=== PATIENT | female | born 1995 | race Caucasian/White ===

== ENCOUNTER 2018-10-21 08:33 | Emergency (ER) | payer MEDICAID ==
[~2018-10-21] VITALS: Ht 160 cm; Wt 53.8 kg
[~2018-10-21 08:33] MED LIST: IBUP-1984 PO; PENI500T2 PO
[2018-10-21] MEDS ORDERED: triamcinolone acetonide 40mg/ml inj IM ONE (08:55)
[2018-10-21 09:11] VITALS: BP 106/56
== END 2018-10-21 09:25 | disposition home or self-care (01) ==
LOC: ER 08:33
DX: L23.9 Allergic contact dermatitis, unspecified cause (principal); F17.200 Nicotine dependence, unspecified, uncomplicated; Z79.899 Other long term (current) drug therapy
CPT/HCPCS: 96372; 99283; J3301

== ENCOUNTER 2019-02-23 07:32 | Emergency (ER) | payer MEDICAID ==
[~2019-02-23] VITALS: Ht 160 cm; Wt 54.0 kg
[2019-02-23] MEDS ORDERED: ciprofloxacin 0.3% 2.5ml ophthalmic solution EACHEYE STA (08:09)
[2019-02-23 08:30] VITALS: BP 143/93
== END 2019-02-23 08:32 | disposition home or self-care (01) ==
LOC: ER 07:33
DX: H10.9 Unspecified conjunctivitis (principal); Z79.899 Other long term (current) drug therapy
CPT/HCPCS: 99283

== ENCOUNTER 2019-09-06 18:57 | Emergency (ER) | payer MEDICAID ==
[~2019-09-06] VITALS: Ht 160 cm; Wt 56.0 kg
[2019-09-06 19:02] VITALS: BP 139/94
[2019-09-06] MEDS ORDERED: PENI500T2 PO (19:46)
== END 2019-09-06 20:27 | disposition home or self-care (01) ==
LOC: ER 18:58
DX: K08.89 Other specified disorders of teeth and supporting structures (principal); F10.10 Alcohol abuse, uncomplicated; R00.0 Tachycardia, unspecified; F12.90 Cannabis use, unspecified, uncomplicated; Z79.899 Other long term (current) drug therapy; Y90.9 Presence of alcohol in blood, level not specified
CPT/HCPCS: 93005; 99283

== ENCOUNTER 2019-11-16 03:27 | Emergency (ER) | payer MEDICAID ==
[~2019-11-16] VITALS: Ht 160 cm; Wt 57.3 kg
[2019-11-16 03:33] VITALS: BP 113/82
[2019-11-16] MEDS ORDERED: sulfamethoxazole/trimethoprim DS (800/160mg) tablet PO ONE (04:05)
[2019-11-16] MEDS ORDERED: cephalexin 250mg capsule PO ONE (04:05)
[2019-11-16] MEDS ORDERED: ketorolac trometh inj. 60 MG/2 ML VIAL IM ONE (04:05)
[2019-11-16] MEDS ORDERED: CEPH500C5 PO (04:06)
[2019-11-16] MEDS ORDERED: BACDS PO (04:06)
== END 2019-11-16 04:17 | disposition home or self-care (01) ==
LOC: ER 03:29
DX: L03.211 Cellulitis of face (principal); F12.90 Cannabis use, unspecified, uncomplicated; F15.90 Other stimulant use, unspecified, uncomplicated
CPT/HCPCS: 96372; 99283; J1885

== ENCOUNTER 2020-04-23 22:45 | Emergency (ER) | payer MEDICAID ==
[~2020-04-23] VITALS: Ht 160 cm; Wt 56.8 kg
[~2020-04-23 22:45] MED LIST changes: +CEPH500C5 PO
[2020-04-23 22:47] VITALS: BP 135/88
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
--- NOTE | 2020-04-23 23:06 | NUR ---
SPOKE WITH [facility],
[2020-04-23] MEDS ORDERED: TETanus/Pertussis (Acell)/Diphther VAC/PF (Tdap-Adult) 0.5ml syringe IMVAC ONE (23:20)
[2020-04-23] MEDS ORDERED: LIDOcaine 1% W/epiNEPHrine 1:200,000 10ml vial IJ ONE (23:20)
--- NOTE | 2020-04-23 23:40 | NUR ---
[facility] PRESENT INTERVIEWING PT IN BED 9.
[2020-04-23] MEDS ORDERED: SULF1TAB49 PO (23:45)
[2020-04-23] MEDS ORDERED: CEPH-572 PO (23:45)
== END 2020-04-24 00:19 | disposition home or self-care (01) ==
LOC: ER 22:46
DX: L02.01 Cutaneous abscess of face (principal); R51 Headache; M54.2 Cervicalgia; R11.0 Nausea; F17.210 Nicotine dependence, cigarettes, uncomplicated; Z72.89 Other problems related to lifestyle; Z79.899 Other long term (current) drug therapy; Y09 Assault by unspecified means
CPT/HCPCS: 10060; 90471; 90715; 99283

== ENCOUNTER 2020-11-13 16:22 | Emergency (ER) | payer MEDICAID ==
[~2020-11-13] VITALS: Ht 160 cm; Wt 52.0 kg
[~2020-11-13 16:22] MED LIST changes: +CEPH-585 PO; -CEPH500C5 PO
[2020-11-13 16:40] VITALS: BP 139/85
[2020-11-13] MEDS ORDERED: DOXY100C77 PO (17:42)
[2020-11-13] MEDS ORDERED: CefTRIAXone 1000mg IM Kit (w/lidocaine diluent) IM ONE (17:45)
[2020-11-13 17:48] LABS: CLARITY,URINE CLOUDY (Clear); COLOR,URINE YELLOW (Yellow); GLUCOSE, URINE NEGATIVE (Neg); KETONES,URINE NEGATIVE (Neg); LEUKOCYTE ESTERASE ,URINE SMALL (Neg); NITRITES, URINE POSITIVE (Neg); OCCULT BLOOD,URINE NEGATIVE (Neg); PROTEIN,URINE NEGATIVE (Neg); UROBILINOGEN,URINE 0.2 E.U/dL (0.2-1.0)
[2020-11-13 17:49] LABS: URINE HCG NEGATIVE (NEG)
[2020-11-13 17:50] LABS: UA COLLECTION TYPE VOIDED
[2020-11-13 17:57] LABS: BACTERIA,URINE 4+ /HPF (Neg); MUCUS STRANDS FEW /LPF (Neg); RBC,URINE 0-2 /HPF (0-2); SQUAMOUS EPITHELIAL CELL,UR MANY /LPF (FEW)
[2020-11-13 17:58] LABS: AMORPHOUS PHOSPHATES 2+
== END 2020-11-13 18:29 | disposition home or self-care (01) ==
LOC: ER 16:23
DX: N89.8 Other specified noninflammatory disorders of vagina (principal); Z20.2 Contact with and (suspected) exposure to infections with a predominantly sexual mode of transmission; Z79.2 Long term (current) use of antibiotics; Z79.899 Other long term (current) drug therapy
CPT/HCPCS: 36415; 81001; 81025; 87491; 87591; 96372; 99283; J0696

== ENCOUNTER 2021-10-30 13:32 | Emergency (ER) | payer MEDICAID ==
[~2021-10-30] VITALS: Ht 160 cm; Wt 59.1 kg
[~2021-10-30 13:32] MED LIST changes: -CEPH-585 PO
[2021-10-30 13:49] VITALS: BP 125/77
[2021-10-30 14:26] LABS: CLARITY,URINE CLOUDY (Clear); COLOR,URINE YELLOW (Yellow); GLUCOSE, URINE NEGATIVE (Neg); KETONES,URINE 15 mg/dl (Neg); LEUKOCYTE ESTERASE ,URINE SMALL (Neg); NITRITES, URINE POSITIVE (Neg); OCCULT BLOOD,URINE LARGE (Neg); PROTEIN,URINE 30 mg/dl (Neg); URINE HCG NEGATIVE (NEG); UROBILINOGEN,URINE 0.2 E.U/dL (0.2-1.0)
[2021-10-30 14:35] LABS: URINE AMPHETAMINE SCREEN POSITIVE (Neg); URINE BARBITUATE SCREEN NEGATIVE (Neg); URINE BENZODIAZEPINES SCREEN NEGATIVE (Neg); URINE CANNABINOID SCREEN POSITIVE (Neg); URINE COCAINE SCREEN NEGATIVE (Neg); URINE METHADONE SCREEN NEGATIVE (Neg); URINE OPIATE SCREEN NEGATIVE (Neg); URINE PHENCYCLIDINE SCREEN NEGATIVE (Neg)
[2021-10-30 14:44] LABS: UA COLLECTION TYPE CLN CATCH MIDSTREAM
[2021-10-30 14:45] LABS: TRICHOMONAS,URINE MOD /HPF (NEGATIVE); WBC,URINE TNTC /HPF (0-4)
[2021-10-30 14:46] LABS: BACTERIA,URINE 2+ /HPF (Neg)
[2021-10-30 14:47] LABS: SQUAMOUS EPITHELIAL CELL,UR MODERATE /LPF (FEW)
[2021-10-30] MEDS ORDERED: azithromycin 250mg tablet PO ONE (15:35)
[2021-10-30] MEDS ORDERED: penicillin G benzathine 1.2 million unit/2ml syringe IM ONE ×2 (15:35)
[2021-10-30] MEDS ORDERED: CefTRIAXone 250MG IM Kit w/LIDOcaine IM ONE (15:35)
[2021-10-30] MEDS ORDERED: PENICILLIN G BENZATHINE 2,400,000 UNIT/4 ML SYRINGE IM ONE (16:31)
[2021-10-30] MEDS ORDERED: ACET-2615 PO (16:43)
[2021-10-30] MEDS ORDERED: CEPH-585 PO (16:43)
== END 2021-10-30 17:01 | disposition home or self-care (01) ==
LOC: ER 13:34
DX: Z20.2 Contact with and (suspected) exposure to infections with a predominantly sexual mode of transmission (principal); N12 Tubulo-interstitial nephritis, not specified as acute or chronic; R31.9 Hematuria, unspecified; M54.2 Cervicalgia; R30.0 Dysuria; Z72.89 Other problems related to lifestyle; Z79.2 Long term (current) use of antibiotics; Z79.899 Other long term (current) drug therapy
CPT/HCPCS: 36415; 80305; 81001; 81025; 86592; 87077; 87088; 87186; 87491; 87591; 96372; 99284; J0561; J0696

== ENCOUNTER 2022-03-12 07:38 | Emergency (ER) | payer MEDICAID ==
[~2022-03-12] VITALS: Ht 160 cm; Wt 57.3 kg
[~2022-03-12 07:38] MED LIST changes: +CEPH-585 PO
[2022-03-12] MEDS ORDERED: LORazepam 1 MG tablet PO ONE (08:40)
[2022-03-12] MEDS ORDERED: ibuprofen tablet 400 MG TABLET PO ONE (08:40)
[2022-03-12] MEDS ORDERED: ondansetron 4mg rapidly disintigrating tab PO ONE (08:45)
[2022-03-12] MEDS ORDERED: MAG355OR18 PO ×2 (09:19)
[2022-03-12] MEDS ORDERED: CEPH500C2 PO (10:34)
[2022-03-12] MEDS ORDERED: CefTRIAXone 250MG inj IM ONE (10:35)
[2022-03-12] MEDS ORDERED: cephalexin 500mg capsule PO ONE (10:35)
[2022-03-12] MEDS ORDERED: CefTRIAXone 500MG IM Kit w/LIDOcaine IM ONE ×3 (10:55→11:10)
[2022-03-12] MEDS ORDERED: CefTRIAXone 1000mg IM Kit (w/lidocaine diluent) IM ONE (11:10)
[2022-03-12 11:29] VITALS: BP 105/67
== END 2022-03-12 11:30 | disposition home or self-care (01) ==
LOC: ER 07:38
DX: N12 Tubulo-interstitial nephritis, not specified as acute or chronic (principal); F12.90 Cannabis use, unspecified, uncomplicated; F15.90 Other stimulant use, unspecified, uncomplicated; Z72.89 Other problems related to lifestyle; Z87.440 Personal history of urinary (tract) infections; Z79.2 Long term (current) use of antibiotics; Z79.899 Other long term (current) drug therapy
CPT/HCPCS: 96372; 99284; J0696

== ENCOUNTER 2022-07-14 00:25 | Emergency (ER) | payer MEDICAID ==
[~2022-07-14] VITALS: Ht 160 cm; Wt 56.8 kg
[2022-07-14 00:32] VITALS: BP 130/78
== END 2022-07-14 03:15 | disposition left against medical advice (07) ==
LOC: ER 00:25
DX: M54.9 Dorsalgia, unspecified (principal); Z53.21 Procedure and treatment not carried out due to patient leaving prior to being seen by health care provider

== ENCOUNTER 2023-10-19 13:09 | Emergency (ER) | payer MEDICAID ==
[~2023-10-19] VITALS: Ht 157.5 cm; Wt 54.2 kg
[~2023-10-19 13:09] MED LIST changes: -CEPH-585 PO
[2023-10-19 14:42] LABS: BASOPHILS # (AUTO) 0.1 X10'3 (0-0.2); BASOPHILS % (AUTO) 0.2 % (0-1); EOSINOPHILS # (AUTO) 0.1 X10'3 (0-0.9); EOSINOPHILS % (AUTO) 0.2 % (0-6); HEMATOCRIT 35.1 % (35.0-45.0); HEMOGLOBIN 11.6 g/dl (12.0-16.0); LYMPHOCYTES % (AUTO) 7.9 % (21-51); MEAN CORPUSCULAR HEMOGLOBIN 31.4 PG (27.0-31.0); MEAN CORPUSCULAR VOLUME 95.2 FL (78-98); MONOCYTES # (AUTO) 1.1 X10'3 (0-0.9); MONOCYTES % (AUTO) 4.3 % (2-12); NEUTROPHILS # (AUTO) 22.3 X10'3 (1.8-7.7); NEUTROPHILS % (AUTO) 87.4 % (42-75); PLATELET COUNT 299 X10'3 (140-440); RED BLOOD COUNT 3.68 X10'6 (4.20-5.60); RED CELL DISTRIBUTION WIDTH 12.3 % (11.5-14.5)
[2023-10-19 14:44] LABS: WHITE BLOOD COUNT 25.5 X10'3 (4.5-11.0)
[2023-10-19] MEDS ORDERED: normal saline 1000ML IV soln IVB ONE ×2 (14:45→17:55)
[2023-10-19] MEDS ORDERED: morphine 4 MG/ML inj SYRINge IV ONE ×2 (14:45→15:25)
[2023-10-19] MEDS ORDERED: ondansetron/PF 4mg/2ml inj IV ONE ×2 (14:45→19:50)
[2023-10-19 14:58] LABS: ALANINE AMINOTRANSFERASE 10 U/L (12-78); ALBUMIN 3.5 G/DL (3.4-5.0); ALBUMIN/GLOBULIN RATIO 0.9 (1.1-1.5); ALKALINE PHOSPHATASE 91 IU/L (46-116); ANION GAP 9 (8-16); ASPARTATE AMINO TRANSFERASE 13 U/L (10-37); BILIRUBIN,TOTAL 1.1 MG/DL (0.1-1.0); BLOOD UREA NITROGEN 11 MG/DL (7-18); BUN/CREATININE RATIO 14.9 (10.0-20.0); CALCIUM 8.6 MG/DL (8.5-10.1); CHLORIDE 99 MMOL/L (99-107); CREATININE 0.74 MG/DL (0.40-0.90); GLUCOSE 94 MG/DL (70-104); POTASSIUM 3.2 MMOL/L (3.5-5.1); SODIUM 134 MMOL/L (135-145); TOTAL CARBON DIOXIDE 26.2 MMOL/L (24-32); TOTAL PROTEIN 7.4 G/DL (6.4-8.2); eCRCL 89 ML/MIN; eGFR > 90 ML/MIN
[2023-10-19 15:10] LABS: TOTAL CELLS COUNTED 100
[2023-10-19 15:11] LABS: PLATELET ESTIMATE NORMAL
[2023-10-19 15:30] LABS: BETA HCG,QUANTITATIVE < 1.0 mIU/ml; LIPASE 14 U/L (16-77)
[2023-10-19] MEDS ORDERED: normal saline 1000ml 1,000 ML IV ONE (15:45)
[2023-10-19] MEDS ORDERED: iohexol 300mg/ml 100ml inj. ONE (15:53)
[2023-10-19] MEDS ORDERED: NO HOME MEDS (16:04)
[2023-10-19 17:26] LABS: BILIRUBIN,URINE NEGATIVE (Neg); CLARITY,URINE SLIGHTLY CLOUDY (Clear); COLOR,URINE YELLOW (Yellow); GLUCOSE, URINE NEGATIVE (Neg); KETONES,URINE 40 mg/dl (Neg); LEUKOCYTE ESTERASE ,URINE SMALL (Neg); NITRITES, URINE POSITIVE (Neg); OCCULT BLOOD,URINE NEGATIVE (Neg); PH,URINE 6.5 (4.8-8.0); PROTEIN,URINE TRACE mg/dl (Neg)
[2023-10-19 17:34] LABS: UA COLLECTION TYPE CLN CATCH MIDSTREAM
[2023-10-19 17:36] LABS: WBC,URINE 50-100 /HPF (0-4)
[2023-10-19 17:37] LABS: BACTERIA,URINE 4+ /HPF (Neg); MUCUS STRANDS FEW /LPF (Neg); RBC,URINE NONE SEEN /HPF (0-2); SQUAMOUS EPITHELIAL CELL,UR MANY /LPF (FEW)
[2023-10-19 17:38] LABS: TRICHOMONAS,URINE FEW /HPF (NEGATIVE)
[2023-10-19] MEDS ORDERED: CefTRIAXone 2gm/D5W 50ml BAG 50 ML IV ONE (17:45)
[2023-10-19] MEDS ORDERED: METR-159 PO ×3 (17:51→17:56)
[2023-10-19] MEDS ORDERED: DOXY-411 PO (17:56)
[2023-10-19] MEDS ORDERED: ONDA4TAB12 PO (17:57)
[2023-10-19] MEDS ORDERED: ketorolac tromethamine 15mg/ml inj. IV ONE (18:20)
[2023-10-19 19:39] VITALS: BP 95/61; PULSE 112; RESP 17; O2SAT 99
[2023-10-19 20:05] VITALS: TEMP 98.2
[2023-10-22 08:07] LABS: CHLAMYDIA TRACHOMATIS, NAA Negative (Negative)
== END 2023-10-19 20:08 | disposition home or self-care (01) ==
LOC: ER 13:10
DX: R10.84 Generalized abdominal pain (principal); A59.01 Trichomonal vulvovaginitis; N73.0 Acute parametritis and pelvic cellulitis; N39.0 Urinary tract infection, site not specified; F12.10 Cannabis abuse, uncomplicated; F15.10 Other stimulant abuse, uncomplicated; Z87.448 Personal history of other diseases of urinary system; Z79.899 Other long term (current) drug therapy
CPT/HCPCS: 36415; 74177; 76856; 80053; 81001; 83605; 83690; 84145; 84702; 85007; 85025; 86592; 87040; 87491; 87591; 93976; 96361; 96365; 96375; 96376; 99285; J0696; J1885; J2270; J2405; J3490; J7030; Q9967

== ENCOUNTER 2024-11-23 13:57 | Emergency (ER) | payer MEDICAID ==
[~2024-11-23] VITALS: Ht 157.5 cm; Wt 59.1 kg
[~2024-11-23 13:57] MED LIST changes: -IBUP-1984 PO; +METR-159 PO; +NO HOME MEDS; +ONDA-243 PO; -PENI500T2 PO
[2024-11-23 14:14] VITALS: BP 179/100; PULSE 82; RESP 18; TEMP 97.8; O2SAT 98
[2024-11-23] MEDS ORDERED: iohexol 300mg/ml 100ml inj. ONE (15:03)
== END 2024-11-23 16:36 | disposition left against medical advice (07) ==
LOC: ER 13:58
DX: O26.90 Pregnancy related conditions, unspecified, unspecified trimester (principal); R06.02 Shortness of breath; R10.2 Pelvic and perineal pain; Z53.21 Procedure and treatment not carried out due to patient leaving prior to being seen by health care provider
CPT/HCPCS: Q9967

== ENCOUNTER 2025-06-30 15:23 | Emergency (ER) | payer MEDICAID ==
[~2025-06-30] VITALS: Ht 157.5 cm; Wt 66.0 kg
[2025-06-30 15:41] VITALS: BP 120/89; PULSE 98; RESP 16; O2SAT 98
--- NOTE | 2025-06-30 17:23 | Physician Documentation ---
History of Present Illness ~ Chief Complaint: Mouth Pain Stated Complaint: ABSCESS Time Seen by MD: 16:59 Primary Medical Doctor: none HPI 30-year-old female sent to the ED with a complaint of that poor dentition and left-sided facial swelling. States she does not think there is an abscess but knows that her pain and swelling is related to poor dentition and caries along with fractured molars on the bottom left Medication Reconciliation Allergies: Coded Allergies: No Known Allergies (Unverified , 06/30/25) Scheduled Amoxicillin Trihydrate* (Amoxicillin*), 1 CAP PO Q8H Metronidazole* (Flagyl*), 1 TAB PO Q12H Scheduled PRN ONDANSETRON ODT 4mg tablet (Ondansetron Odt), 1 TAB PO Q6H PRN PRN for nausea/vomiting Miscellaneous Medications Home Med List (No Home Medications), (Reported) Past Medical History Past Medical History: UTI Past Surgical History: no surgical history Alcohol Use: Sober Drug Use: marijuana, methamphetamine Lives In: Home Review of Systems All Other Systems at this time: Reviewed and Negative ROS As stated above in the HPI, otherwise all systems are reviewed and negative. Physical Exam Vital Signs: Temperature: 98.3, Source: Oral, Heart Rate: 98, Respiratory Rate: 16, BP: 120/89, Pulse Oximetry: 98, Weight: 66.000 Oxygen Flow Rate: 0 Physical Exam General: Alert, no apparent distress. HEENT: PERRL, EOMI, no injection, moist mucous membranes. Dentition throughout the oral cavity notable caries in the bottom left molars along with fractured teeth. Notable soft tissue swelling in the surrounding area no drainage no obvious abscesses Neck: Full range of motion. Respiratory: Lungs clear, no respiratory distress. Neurologic: Oriented x4. Psychiatric: Normal mood and affect. Skin: Normal color, warm and dry. No edema, no ecchymosis. Progress Results/Orders Results/Orders Completed Orders - KEDAR CARMICHAEL NP Ibuprofen Tablet (Motrin Tablet) (06/30/25 17:30) Amoxicillin Capsule (Trimox Capsule) (06/30/25 17:30) Medications Received in ER Medications (Trade) Dose Ordered Sig/Jeronimo Route PRN Reason Start Time Stop Time Status Last Admin Dose Admin (Motrin tablet) 800 mg ONCE ONCE PO 06/30/25 17:30 06/30/25 17:31 DC 06/30/25 17:40 800 MG (Trimox capsule) 500 mg ONCE ONCE PO 06/30/25 17:30 06/30/25 17:31 DC 06/30/25 17:41 500 MG Vital Signs 06/30/25 06/30/25 15:41 17:54 Temp 98.3 98.3 Pulse 98 Resp 16 B/P (MAP) 120/89 Pulse Ox 98 O2 Flow Rate 0 Medical Decision Making Findings I am going to empirically treat this patient for soft tissue infection likely secondary to a developing tooth abscess she is hemodynamically stable and nontoxic appearing. Start her on oral antibiotics here and however complete the the around in the outpatient Tooth Diff. Dx: Considerations: Include: Alveolar fracture, Aveolar osteitis, ANUG, Facial cellulitis, Periapical abscess, Periodontal abscess, Post- extraction bleeding, Pulpitis, Trigeminal neuralgia, Tooth-avulsion, Tooth- eruption, Tooth-fracture, Tooth-subluxation, Other Departure Disposition: 01 HOME / SELF CARE / HOMELESS (ERASED) Impression: Primary Impression: Tooth abscess Ruled Out: Acute urinary tract infection Discharge Instructions: Abscessed Tooth, [id number] Referrals: NO PRIMARY CARE PROVIDER (PCP) Prescriptions Amoxicillin Trihydrate* (Amoxicillin*) 500 Mg Capsule 1 CAP PO Q8H for 10 Days, #30 CAP Prov: KEDAR CARMICHAEL NP 06/30/25 Education Educated: Patient Educated regarding: diagnosis Signature Scribe Signature: tushar Attestation: Scribed for Kedar Carmichael Sleeve Baster by Kedar Jensen NP . 06/30/25 17:29 KEDAR CARMICHAEL NP Jun 30, 2025 17:23
[2025-06-30] MEDS ORDERED: AMOX500C2 PO (17:25)
[2025-06-30] MEDS: ibuprofen tablet 400 MG TABLET PO ONE (17:40)
[2025-06-30 17:54] VITALS: TEMP 98.3
== END 2025-06-30 17:55 | disposition home or self-care (01) ==
LOC: ER 15:23
DX: K04.7 Periapical abscess without sinus (principal); F10.90 Alcohol use, unspecified, uncomplicated; F12.90 Cannabis use, unspecified, uncomplicated; F15.90 Other stimulant use, unspecified, uncomplicated; Y90.9 Presence of alcohol in blood, level not specified
CPT/HCPCS: 99283